=== PATIENT | male | born 1945 | race Caucasian/White ===

== ENCOUNTER 2017-05-30 10:43 | Emergency (ER) | payer MEDICARE, OTHER ==
[2017-05-30 11:25] VITALS: BP 124/87
--- NOTE | 2017-05-30 11:53 | ED Physician Documentation ---
General Adult - HISTORIAN Historian: patient - HPI Stated Complaint: LLQ pain Chief Complaint: Abdominal Pain (LLQ) Additional Information: 71yo white male who has developed some LLQ abd pain. Has had a history of kidney stone and diverticulitis in the past. Started about 4 days ago. About the same as what it has been. Last BM yesterday yesterday and normal. No blood noted. No blood in urine noted. Pain is constant and is worse with deep breathing and movement. Going over a bump in a car makes the pain worse. No fever or chills noted. No nausea or vomiting. Onset: days ago (4) Timing: still present - ROS CONST: denies: fever, chills - PAST HX Past History: hypertension Other History: diabetes Type 2 Surgeries/Procedures: other (paritial colectomy for diverticulitis) Immunizations: influenza, pneumovax Allergies/Adverse Reactions: Allergies Allergy/AdvReac Type Severity Reaction Status Date / Time Penicillins Allergy Verified 05/30/17 12:38 Home Medications: Ambulatory Orders Medication Instructions Recorded Amitriptyline HCl [Elavil] 10 mg PO HS 06/13/13 Insulin Glargine,Hum.rec.anlog 44 units SQ HS 06/13/13 [Lantus] Lisinopril [Lisinopril] 20 mg PO D 06/13/13 Metformin HCl ER [Glucophage XR] 500 mg PO D 06/13/13 Simvastatin [Simvastatin] 10 mg PO D 06/13/13 Ciprofloxacin HCl [Cipro] 500 mg PO BID #20 tablet 05/30/17 metroNIDAZOLE [Flagyl] 500 mg PO TID #30 tablet 05/30/17 - SOCIAL HX Smoking History: quit greater than 1 year (30 yr ago) Alcohol Use: none Drug Use: none - FAMILY HX Family History: No - VITAL SIGNS Vital Signs: Vital Signs Temp Pulse Resp BP Pulse Ox 98.2 F 101 H 20 124/87 96 05/30/17 10:43 05/30/17 10:43 05/30/17 10:43 05/30/17 10:43 05/30/17 10:43 - REVIEWED ASSESSMENTS Nursing Assessment Reviewed: Yes Vitals Reviewed: Yes Progress - Progress Progress: at time of discharge patient was about the same .Believe clinically that he has early diverticulitis and was treated for this. ED Results Lab/Radiology - Radiology Radiology Impressions: Examination: CT Abdomen/pelvis History: LLQ PAIN, HISTORY OF KIDNEY STONES, DIVERTICULITIS, COLON RESECTION (Hx ) / LLQ ABD PAIN, POSSIBLE KIDNEY STONE (DICOM Hx) Comparison exams: None available Technique: CT Abdomen/pelvis without IV protocol. Findings: Liver, spleen, adrenals, pancreas, kidneys and gallbladder are without gross irregularity given exam technique. No gallstone. No suspicious renal calcifications. Ureters are nondilated in their course through the abdomen and pelvis. No central calcifications. Bladder thickened with possible wall edema. Abdominal aorta without aneurysm. Mild peripheral atherosclerotic disease. Cardiac silhouette is not enlarged. No pericardial effusion. Bowel unopacified limiting evaluation. No abnormal dilation. Stool within the large bowel limiting sensitivity. No mesenteric inflammatory changes or free fluid. Appendix is visualized and is without inflammatory changes. Sigmoid diverticula. Mid sigmoid surgical sutures. No adjacent inflammation. Hiatal hernia. Osseous structures demonstrate degenerative changes. Lung bases demonstrate bibasilar parenchymal haziness and scarring. No effusion. Impression: No abdominal mass or acute upper abdominal organ inflammatory process. No abnormal bowel dilation or inflammation. No gallstone. Hiatal hernia. Sigmoid diverticulosis and prior surgical changes. No evidence for acute inflammation. No suspicious renal calcifications or abnormal ureteric dilation. Bladder wall thickening and possible edema - possible cystitis. Correlate with laboratory values. Bibasilar parenchymal hazy infiltrates without effusion. General Adult Physical Exam - PHYSICAL EXAM GENERAL APPEARANCE: mild distress EENT: eye inspection normal NECK: normal inspection. No: lymphadenopathy RESPIRATORY: no resp distress, chest non-tender, breath sounds normal. No: wheezes, rales, rhonchi CVS: reg rate & rhythm, heart sounds normal, equal pulses, no murmur, no gallop ABDOMEN: soft, no organomegaly, normal bowel sounds, no abdominal bruit, no distension, tenderness (LLQ), rebound (mild). No: distended, guarding BACK: normal inspection, no CVA tenderness EXTREMITIES: non-tender, edema NEURO: mood/affect nml, cognition normal Discharge Clincal Impression: Abdominal pain Prescriptions: Ciprofloxacin HCl [Cipro] 500 mg PO BID #20 tablet metroNIDAZOLE [Flagyl] 500 mg PO TID #30 tablet Referrals: Primary Doctor,No [Primary Care Provider] - 2 Days Additional Instructions: Clinically it appears that you may be having early diverticulitis. Cipro and metronidazole will be started. Watch for increasing pain and or fever. If symptoms do not improve to be seen by your primary care provider or return to the ED. Condition: Stable Decision to Admit: NO Date of Decison to Admit: 05/30/17 Decision Time: 13:17
[2017-05-30 12:14] LABS: BASOPHILS % 0.6 (0.0-1.5); EOSINOPHILS % 4.5 % (0.0-6.8); MEAN CORPUSCULAR HEMOGLOBIN 29.9 pg (28.0-34.0); MEAN CORPUSCULAR VOLUME 87.2 fl (80.0-100.0); MONOCYTES % 5.4 % (0.0-11.0); NEUTROPHILS # 5.2 # k/uL (1.4-7.7)
[2017-05-30 12:21] LABS: eGFR (African) > 60; eGFR (Non-African) > 60
--- NOTE | 2017-05-30 14:57 | Diagnostic Imaging Report ---
BLADE CHAVARRIA [facility] [id number] [facility] [address] [place], [place]. [address] Report Submission Date: May 30, 2017 12:58:10 PM OUTSOLE FLEXER Patient Study Name: LISA WELCH I Date: May 30, 2017 12:10:46 PM OUTSOLE FLEXER Modality Type: CT\SR Gender: M Description: CT ABD & PELVIS W/O CO : 43 Institution: [facility] Physician: BLADE CHAVARRIA Examination: CT Abdomen/pelvis History: LLQ PAIN, HISTORY OF KIDNEY STONES, DIVERTICULITIS, COLON RESECTION (Hx ) / LLQ ABD PAIN, POSSIBLE KIDNEY STONE (DICOM Hx) Comparison exams: None available Technique: CT Abdomen/pelvis without IV protocol. Findings: Liver, spleen, adrenals, pancreas, kidneys and gallbladder are without gross irregularity given exam technique. No gallstone. No suspicious renal calcifications. Ureters are nondilated in their course through the abdomen and pelvis. No central calcifications. Bladder thickened with possible wall edema. Abdominal aorta without aneurysm. Mild peripheral atherosclerotic disease. Cardiac silhouette is not enlarged. No pericardial effusion. Bowel unopacified limiting evaluation. No abnormal dilation. Stool within the large bowel limiting sensitivity. No mesenteric inflammatory changes or free fluid. Appendix is visualized and is without inflammatory changes. Sigmoid diverticula. Mid sigmoid surgical sutures. No adjacent inflammation. Hiatal hernia. Osseous structures demonstrate degenerative changes. Lung bases demonstrate bibasilar parenchymal haziness and scarring. No effusion. Impression: No abdominal mass or acute upper abdominal organ inflammatory process. No abnormal bowel dilation or inflammation. No gallstone. Hiatal hernia. Sigmoid diverticulosis and prior surgical changes. No evidence for acute inflammation. No suspicious renal calcifications or abnormal ureteric dilation. Bladder wall thickening and possible edema - possible cystitis. Correlate with laboratory values. Bibasilar parenchymal hazy infiltrates without effusion. Electronically signed on May 30, 2017 12:58:10 PM OUTSOLE FLEXER by: Ta RICE
[2017-05-31 06:15] LABS: APPEARANCE,URINE CLEAR (CLEAR); COLOR,URINE AMBER (YELLOW)
[2017-05-31 06:16] LABS: OCCULT BLOOD,URINE TRACE-INTACT (NEGATIVE); PH URINE 5.5 (5.0 - 8.0); UROBILINOGEN URINE 0.2 Eu (0.2-1.0)
== END 2017-05-30 13:43 ==
LOC: ED 10:43
DX: R10.32 Left lower quadrant pain (principal); I10 Essential (primary) hypertension; E11.9 Type 2 diabetes mellitus without complications
CPT/HCPCS: 74176; 80053; 81002; 85025; 99282; 99283; S1016